=== PATIENT | male | born 1970 | race Two or more races ===

== ENCOUNTER 2017-05-30 19:51 | Emergency (ER) | payer SELFPAY ==
[2017-05-30] MEDS ORDERED: ASPIRIN 81 MG CHEWABLE TAB ONE (19:53)
[2017-05-30] MEDS ORDERED: ASPIRIN 81 MG CHEWABLE TAB PO ONE (19:55)
--- NOTE | 2017-05-30 19:58 | CPEKG ---
Heart Rate: 78 RR Interval: 769 P-R Interval: 156 QRSD Interval: 80 QT Interval: 364 QTC Interval: 415 P Bland: 73 QRS Bland: 63 T Wave Bland: 29 EKG Severity - ABNORMAL ECG - EKG Impression: SINUS RHYTHM EKG Impression: BORDERLINE ST DEPRESSION, INFERIOR LEADS EKG Impression: ST ELEVATION, CONSIDER ANTERIOR INJURY Electronically Signed By: Cornelius Zamora 31-May-2017 06:08:02
[2017-05-30] MEDS: NITROGLYCERIN 0.4 MG BTL SL ONE ×3 (20:00→20:10)
[2017-05-30 20:14] LABS: PLATELET COUNT 317 10^3/uL (150-400)
[2017-05-30 20:18] VITALS: BP 114/82
--- NOTE | 2017-05-30 20:19 | EDPHY ---
HPI/HX/ROS/PE/MDM Narrative: CHIEF COMPLAINT: Chest pain HPI: The patient is a 47-year-old male with a history of a prior remote seizure He reports several episodes of chest pain over the last week which resolved spontaneously. Earlier today he shoulder quite a lot of snow. One hour ago he developed substernal crushing chest pain which he describes as "feeling like a car sitting on my chest." He endorses a radiation of the pain down his left arm. He denies recent fall or injury. REVIEW OF SYSTEMS: Aside from elements discussed in the HPI, a comprehensive 10-point review of systems was reviewed and is negative. PMH: Right shoulder surgery. History of epilepsy. No known high cholesterol or high blood pressure. SOCIAL HISTORY: Recently , smoker. PHYSICAL EXAM: General:Patient is alert,clutching chest in pain. ENT:Eyes are normal to inspection. ENT inspection normal. Neck: Normal inspection. Full range of motion. Respiratory:No respiratory distress. Breath sounds normal bilaterally. Cardiovascular: Regular rate and rhythm. Strong peripheral pulses. Normal cap refill. Abdomen:The abdomen is nontender to palpation. There are no peritoneal signs. There are normal bowel sounds. Back: Normal to inspection. No tenderness to palpation. Skin: Normal color. No rash. Warm and dry. Extremities: Normal appearance. Full range of motion. Neuro: Oriented x3. Normal motor function. Normal sensory function. ED Course: The patient was immediately brought back to the exam room and an EKG was performed. This reveals signs of a STEMI including anterior elevation with concerning morphology as well as inferior depression. The patient was given 324 mg of aspirin and sublingual nitroglycerin. Emergent ambulance was immediately requested. We spent approximately 5-10 minutes trying to get a hold of a receiving physician at the closest hospital with superintendent geophysical laboratory, namely [facility]. I finally was able to speak with a Dr. Kelsey who accepts patient for transfer. I personally spent a total of 27 minutes of critical care time in obtaining history, performing a physical exam, bedside monitoring of interventions, collecting and interpreting tests and discussion with consultants but not including time spent performing procedures. This time was exclusive of any involvement by [employer]. Organ system(s) at risk include: Cardiovascular - Data Points Laboratory Results: Laboratory Results 05/30/17 19:55 05/30/17 19:55 05/30/17 05/30/1705/30/18 20:15 19:55 19:55 WBC 12.39 10^3/uL H 10^3/uL (3.80-9.50) RBC 5.66 10^6/uL 10^6/uL (4.40-6.38) Hgb 18.3 g/dL H g/dL (13.7-17.5) Hct 51.0 % % (40.0-51.0) MCV 90.1 fL fL (81.5-99.8) MCH 32.3 pg pg (27.9-34.1) MCHC 35.9 g/dL g/dL (32.4-36.7) RDW 12.3 % % (11.5-15.2) Plt Count 317 10^3/uL 10^3/uL (150-400) MPV 10.2 fL fL (8.7-11.7) Neut % (Auto) 48.9 % % (39.3-74.2) Lymph % (Auto) 40.6 % % (15.0-45.0) Island % (Auto) 8.3 % % (4.5-13.0) Eos % (Auto) 0.9 % % (0.6-7.6) Baso % (Auto) 0.7 % % (0.3-1.7) Nucleat RBC Rel Count 0.0 % % (0.0-0.2) Absolute Neuts (auto) 6.06 10^3/uL 10^3/uL (1.70-6.50) Absolute Lymphs (auto) 5.03 10^3/uL H 10^3/uL (1.00-3.00) Absolute Monos (auto) 1.03 10^3/uL H 10^3/uL (0.30-0.80) Absolute Eos (auto) 0.11 10^3/uL 10^3/uL (0.03-0.40) Absolute Basos (auto) 0.09 10^3/uL 10^3/uL (0.02-0.10) Absolute Nucleated RBC 0.00 10^3/uL 10^3/uL (0-0.01) Immature Gran % 0.6 % % (0.0-1.1) Immature Gran # 0.07 10^3/uL 10^3/uL (0.00-0.10) PT 12.5 SEC SEC (12.0-15.0) INR 0.94 (0.83-1.16) APTT 25.7 SEC SEC (23.0-38.0) Sodium 140 mEq/L mEq/L (135-145) Potassium 4.0 mEq/L mEq/L (3.5-5.2) Chloride 98 mEq/L mEq/L (97-110) Carbon Dioxide 25 mEq/l mEq/l (22-31) Anion Gap 17 mEq/L H mEq/L (8-16) BUN 12 mg/dL mg/dL (7-23) Creatinine 0.9 mg/dL mg/dL (0.7-1.3) Estimated GFR > 60 Glucose 110 mg/dL H mg/dL (70-100) Calcium 10.9 mg/dL H mg/dL (8.5-10.4) Phosphorus 2.9 mg/dL mg/dL (2.5-4.5) Troponin I 0.053 ng/mL H ng/mL (0.000-0.034) Medications Given: Discontinued Medications Aspirin (Aspirin) 324 mg PO EDNOW ONE Stop: 05/30/17 19:56 Last Admin: 05/30/17 19:59 Dose: 324 mg Nitroglycerin (Nitrostat) 0.4 mg SL EDNOW ONE Stop: 05/30/17 19:58 Last Admin: 05/30/17 20:10 Dose: 0.4 mg General Time Seen by Provider: 05/30/17 20:01 Initial Vital Signs: Initial Vital Signs O2 Sat (%) 99 05/30/17 20:00 O2 (L/minute) 2 Allergies/Adverse Reactions: No Known Allergies Allergy (Unverified 05/30/17 19:55) Departure - Departure Disposition: Acute Care Hospital Not [facility] Clinical Impression: STEMI (ST elevation myocardial infarction) Condition: Serious Referrals: Unknown,Unknown [Primary Care Provider] - As per Instructions
[2017-05-30 20:21] VITALS: O2SAT 99
[2017-05-30 20:27] LABS: INR 0.94 (0.83-1.16); PROTIME(PATIENT) 12.5 SEC (12.0-15.0)
== END 2017-05-30 20:20 | disposition short-term general hospital (02) ==
LOC: CED 19:51
DX: I21.01 ST elevation (STEMI) myocardial infarction involving left main coronary artery (principal); F17.200 Nicotine dependence, unspecified, uncomplicated
CPT/HCPCS: 80048-PO; 84100-PO; 84484-PO; 85025-PO; 85610-PO; 85730-PO